=== PATIENT | male | born 1960 | race Caucasian/White ===

== ENCOUNTER 2016-10-25 10:10 | Outpatient (CLI) | payer OTHER ==
--- NOTE | 2016-10-26 10:31 | DIAGNOSTIC IMAGING REPORT ---
PROCEDURE: 2-D M-mode echo Doppler CLINICAL INDICATION: Chest pain TECHNIQUE: Standard 2-D M-mode echo Doppler technique COMPARISON: None available FINDINGS: The aortic valve exhibits very mild sclerosis no stenosis or insufficiency apparent. The mitral valve and tricuspid valves are normal with normal RVSP of 24. The pulmonic valve is normal. Ventricular dimension is normal LVH is present ejection fraction is 67% with normal contractility. Right ventricular size dimension and function is normal. Left and right atrial dimensions are normal.Aortic root is mildly dilated measuring 3.8 cm pericardium is normal IMPRESSION: Aortic sclerosis no stenosis Left ventricular ejection fraction 67% with normal contraction LVH Mild aortic root dilation measuring 3.8 cm
== END 2016-10-25 23:00 ==
LOC: US SRH 10:10
DX: R07.9 Chest pain, unspecified (principal)

== ENCOUNTER 2016-11-02 10:57 | Outpatient (CLI) | payer OTHER ==
--- NOTE | 2016-11-03 16:31 | DIAGNOSTIC IMAGING REPORT ---
PROCEDURE: NM CARDIAC STRESS TEST INDICATION: Chest pain TECHNIQUE: Please see separately dictated stress test report for details of that portion of the procedure. COMPARISON: None FINDINGS: SPECT imaging shows homogeneous tracer distribution. Some stress score is one. Gated SPECT imaging shows ejection fraction 59%, end-diastolic volume 158 ml, end-systolic volume 65 ml. Wall motion and wall thickening are normal. IMPRESSION: No infarct or ischemia Normal left ventricular ejection fraction. Mildly dilated left ventricle.
== END 2016-11-02 23:00 ==
LOC: NM SRH 10:57
PROC: 3E073KZ Introduction of Other Diagnostic Substance into Coronary Artery, Percutaneous Approach (ICD-10-PCS; principal; 2016-11-02)
PROC: 4A02XM4 Measurement of Cardiac Total Activity, External Approach (ICD-10-PCS; principal; 2016-11-02)
DX: R42 Dizziness and giddiness (principal); R07.9 Chest pain, unspecified

== ENCOUNTER 2017-03-02 17:08 | Emergency (ER) | payer OTHER ==
--- NOTE | 2017-03-02 17:45 | ED NURSING NOTES ---
Clinical Report - Nurses [facility] [address] [place] [address] 03/02/2017 17:09 Patient: JENNIE PADILLA TRIAGE Triage time 17:Mar 02 2017. Acuity: LEVEL 3. Chief Complaint: ABDOMINAL PAIN. 17:14 03/02/17. Alert. No acute distress. SEPSIS SCREEN: Sepsis Screen. Negative (no infection suspected/documented). YG COMA SCORE: Yg Coma Scale: 15- eyes open spontaneously (4); best verbal response- oriented x 4 (5); best motor response- obeys commands (6). --17:14 Marcia Jennings 17:23 03/02/17. ( 10/10 at worst). --17:23 Marcia Jennings 17:23 03/02/17. BP: 104/58. HR: 65. RR: 20. O2 saturation: 96%. Temp: 98.2 F. Pain level now 8/10. --17:23 Marcia Jennings. Weight: 95.2 kg stated. Height/Length: 73 inches Per Patient. BMI: 27.7. --17:15 Marcia Jennings. Medications Aspirin Oral. Cyclobenzaprine HCl Oral. HTN meds x 2. --17:15 Marcia Jennings The following entry was struck by Marcia Jennings, 17:15 (03/02/17) Reason - other. <<STRICKEN ENTRY-- Bp meds. --17:13 Marcia Jennings --END STRIKE>>. Medication/allergy information source: the patient. --17:14 Marcia Jennings. Allergies Codeine.(nausea) --17:15 Marcia Jennings. History Arrived by EMS. Historian: EMS and patient. This started today. The patient has had a subjective fever and abdominal pain. No nausea, vomiting, diarrhea or constipation. 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 BP: 140/80. HR: 76. RR: 18. O2 saturation: 95 % room air. ( Sharp L flank pain this AM. Pain increased, stabbing pain. Radiates up Left chest and arm. Spasming pain. NSR for medics. Pt had "a couple drinks THREADING MACHINE FEEDER AUTOMATIC"). FALL RISK ASSESSMENT: Fall risk assessment completed. No fall risk identified. NUTRITIONAL RISK ASSESSMENT: The nutritional risk assessment revealed no deficiencies. FUNCTIONAL ASSESSMENT: Functional assessment: no impairments noted. LEARNING NEEDS ASSESSMENT: The learning needs assessment revealed no barriers. SKIN INTEGRITY ASSESSMENT: Skin integrity risk assessment completed. No skin integrity risk identified. --17:14 Marcia Jennings ( Pain worse when breathing. Pt reports pain that comes and goes. Most of the pain is in the left flank, also reports chest pain.). SOCIAL HX: Heavy tobacco smoker (cigarette)- less than 1 pack per day. Occasional alcohol use. Last drink was just prior to arrival. No drug use. No recent travel. No known contact with a sick individual. --17:23 Marcia Jennings. PROBLEMS: Hypertension. Abdominal Pain. Glaucoma. --17:15 Marcia Jennings. ADDITIONAL SURGERIES: Appendectomy. Eye . Knee Surgery. --17:15 Marcia Jennings. Assessment The patient states feels the same. --17:23 Marcia Jennings. Interventions ID band on patient. --17:14 Marcia Jennings. PHYSICAL ASSESSMENT 17:24 03/02/17. To room via stretcher. Patient gowned. GENERAL / NEURO / PSYCH: Alert. Oriented X 4. Appears in pain. HEENT: Mucous membranes are pink. RESPIRATORY: Respirations not labored. CVS: Capillary refill less than 2 seconds. GI / : No nausea noted. ( flank pain on left side). SKIN: Skin is warm and dry. --17:24 Marcia Jennings. NURSING PROGRESS NOTES 17:24 03/02/17. The plan of care for this patient has been created. business data analyst, pulse oximeter and NIBP monitor placed on patient; monitor alarms on. Patient gowned. Head of bed elevated. Reassurance given. Two patient identifiers checked. Call light placed in reach. Side rails up x 2. Bed placed in lowest position. Brakes of bed on. Patient ready for evaluation- chart flagged and ED physician and THEATRE PROFESSOR notified. --17:24 Marcia Jennings 17:30 03/02/17. ( Pt refuses IV, states he is OK with blood draw.). --17:30 Marcia Jennings. DISPOSITION / DISCHARGE 17:32 03/02/17. The patient left the Emergency Department against medical advice and without completion of treatment; patient was accompanied by a family member. The patient appears to be alert, oriented x4, coherent and in no acute distress. Notified the ED physician of patient departure. Patient left without signing form prior to leaving. The patient left the Emergency Department ambulatory and via private vehicle. ( Patient left ED to get family member. Admitting called ED to inform that patient and family member were leaving.). --17:32 Marcia Jennings 17:32 03/02/17. Departure time: :Mar 02 2017. --17:32 Marcia Jennings 17:30 03/02/17. BP: unable to obtain due to patient not present. HR: unable to obtain due to patient not present. RR: unable to obtain due to patient not present. O2 saturation: unable to obtain due to patient not present. Temp: unable to obtain due to patient not present. Pain level now unable to obtain due to patient not present. --00:48 Marcia Jennings. Locked/Released at 03/03/2017 0:48 by Marcia Jennings,
--- NOTE | 2017-03-02 17:45 | ED NURSING NOTES ---
Clinical Report - Nurses [facility] [address] [place] [address] 03/02/2017 17:09 Patient: JENNIE PADILLA TRIAGE Triage time 17:Mar 02 2017. Acuity: LEVEL 3. Chief Complaint: ABDOMINAL PAIN. 17:14 03/02/17. Alert. No acute distress. SEPSIS SCREEN: Sepsis Screen. Negative (no infection suspected/documented). YG COMA SCORE: Yg Coma Scale: 15- eyes open spontaneously (4); best verbal response- oriented x 4 (5); best motor response- obeys commands (6). --17:14 Marcia Jennings 17:23 03/02/17. ( 10/10 at worst). --17:23 Marcia Jennings 17:23 03/02/17. BP: 104/58. HR: 65. RR: 20. O2 saturation: 96%. Temp: 98.2 F. Pain level now 8/10. --17:23 Marcia Jennings. Weight: 95.2 kg stated. Height/Length: 73 inches Per Patient. BMI: 27.7. --17:15 Marcia Jennings. Medications Aspirin Oral. Cyclobenzaprine HCl Oral. HTN meds x 2. --17:15 Marcia Jennings The following entry was struck by Marcia Jennings, 17:15 (03/02/17) Reason - other. <<STRICKEN ENTRY-- Bp meds. --17:13 Marcia Jennings --END STRIKE>>. Medication/allergy information source: the patient. --17:14 Marcia Jennings. Allergies Codeine.(nausea) --17:15 Marcia Jennings. History Arrived by EMS. Historian: EMS and patient. This started today. The patient has had a subjective fever and abdominal pain. No nausea, vomiting, diarrhea or constipation. 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 BP: 140/80. HR: 76. RR: 18. O2 saturation: 95 % room air. ( Sharp L flank pain this AM. Pain increased, stabbing pain. Radiates up Left chest and arm. Spasming pain. NSR for medics. Pt had "a couple drinks MAILROOM CLERK"). FALL RISK ASSESSMENT: Fall risk assessment completed. No fall risk identified. NUTRITIONAL RISK ASSESSMENT: The nutritional risk assessment revealed no deficiencies. FUNCTIONAL ASSESSMENT: Functional assessment: no impairments noted. LEARNING NEEDS ASSESSMENT: The learning needs assessment revealed no barriers. SKIN INTEGRITY ASSESSMENT: Skin integrity risk assessment completed. No skin integrity risk identified. --17:14 Marcia Jennings ( Pain worse when breathing. Pt reports pain that comes and goes. Most of the pain is in the left flank, also reports chest pain.). SOCIAL HX: Heavy tobacco smoker (cigarette)- less than 1 pack per day. Occasional alcohol use. Last drink was just prior to arrival. No drug use. No recent travel. No known contact with a sick individual. --17:23 Marcia Jennings. PROBLEMS: Hypertension. Abdominal Pain. Glaucoma. --17:15 Marcia Jennings. ADDITIONAL SURGERIES: Appendectomy. Eye . Knee Surgery. --17:15 Marcia Jennings. Assessment The patient states feels the same. --17:23 Marcia Jennings. Interventions ID band on patient. --17:14 Marcia Jennings. PHYSICAL ASSESSMENT 17:24 03/02/17. To room via stretcher. Patient gowned. GENERAL / NEURO / PSYCH: Alert. Oriented X 4. Appears in pain. HEENT: Mucous membranes are pink. RESPIRATORY: Respirations not labored. CVS: Capillary refill less than 2 seconds. GI / : No nausea noted. ( flank pain on left side). SKIN: Skin is warm and dry. --17:24 Marcia Jennings. NURSING PROGRESS NOTES 17:24 03/02/17. The plan of care for this patient has been created. playground monitor, pulse oximeter and NIBP monitor placed on patient; monitor alarms on. Patient gowned. Head of bed elevated. Reassurance given. Two patient identifiers checked. Call light placed in reach. Side rails up x 2. Bed placed in lowest position. Brakes of bed on. Patient ready for evaluation- chart flagged and ED physician and ORDER FULFILLMENT SPECIALIST notified. --17:24 Marcia Jennings 17:30 03/02/17. ( Pt refuses IV, states he is OK with blood draw.). --17:30 Marcia Jennings. DISPOSITION / DISCHARGE 17:32 03/02/17. The patient left the Emergency Department against medical advice and without completion of treatment; patient was accompanied by a family member. The patient appears to be alert, oriented x4, coherent and in no acute distress. Notified the ED physician of patient departure. Patient left without signing form prior to leaving. The patient left the Emergency Department ambulatory and via private vehicle. ( Patient left ED to get family member. Admitting called ED to inform that patient and family member were leaving.). --17:32 Marcia Jennings 17:32 03/02/17. Departure time: :Mar 02 2017. --17:32 Marcia Jennings 17:30 03/02/17. BP: unable to obtain due to patient not present. HR: unable to obtain due to patient not present. RR: unable to obtain due to patient not present. O2 saturation: unable to obtain due to patient not present. Temp: unable to obtain due to patient not present. Pain level now unable to obtain due to patient not present. --00:48 Marcia Jennings. Locked/Released at 03/03/2017 0:48 by Marcia Jennings,
--- NOTE | 2017-03-02 17:45 | ED ORDER SUMMARY ---
..... Patient: JENNIE PADILLA OrderSheet [facility] VisitID: [id number] [place] [address] 57y, M Registration Date/Time: 03/02/2017 ORDER SHEET Weight: 95.2 kg (stated) Allergies: Codeine GENERAL ORDERS: CBC w Diff Urgent (17:03/02/2017 HBivens A.R.N.P.) (Ack 17:33 PWeiler ER Tech1) (Cancelled: Patient Left22:45 AMcQuoid ER Tech1) CMP Urgent (17:03/02/2017 HBivens A.R.N.P.) (Ack 17:33 PWeiler ER Tech1) (Cancelled: Patient Left22:45 AMcQuoid ER Tech1) UA-Culture if indicated Urgent (17:03/02/2017 HBivens A.R.N.P.) (Ack 17:33 PWeiler ER Tech1) (Cancelled: Patient Left22:45 AMcQuoid ER Tech1) Amylase Urgent (17:03/02/2017 HBivens A.R.N.P.) (Ack 17:33 PWeiler ER Tech1) (Cancelled: Patient Left22:45 AMcQuoid ER Tech1) Lipase Urgent (17:03/02/2017 HBivens A.R.N.P.) (Ack 17:33 PWeiler ER Tech1) (Cancelled: Patient Left22:45 AMcQuoid ER Tech1) Ethyl Alcohol Urgent (17:03/02/2017 HBivens A.R.N.P.) (Ack 17:33 PWeiler ER Tech1) (Cancelled: Patient Left22:45 AMcQuoid ER Tech1) MEDICATION ORDERS: IV FLUIDS: IV NS : initial bolus 1000 mL (1000 mL/hr), then none - (NOW) (:03/02/2017 HBivens A.R.N.P.) Toradol IV 30 mg (NOW) (17:03/02/2017 HBivens A.R.N.P.) IV Saline Lock (:03/02/2017 HBivens A.R.N.P.) ORDER SHEET NOTES: [Electronically signed by Keren Chiang (20:45 03/02/2017)] [Electronically signed by Marcia Jennings (00:48 03/03/2017)] [Electronically locked/signed by Marcia Jennings (00:48 03/03/2017)]
--- NOTE | 2017-03-02 17:45 | ED CLINICAL REPORT ---
Clinical Report - Physicians/Mid Levels [facility] [address] [place] [address] 03/02/2017 17:09 Patient: JENNIE PADILLA Time Seen: 17:20; initial patient contact, initial documentation, patient care assumed. Arrived- By ambulance. Historian- patient. HISTORY OF PRESENT ILLNESS Chief Complaint: ABDOMINAL PAIN. At its maximum, severity described as severe. When seen in the E.D., severity described as severe. Modifying factors. Not worsened by anything. Not relieved by anything. It is described as "pain" and it is described as located in the left upper quadrant and radiating to the epigastrum. This started today and is still present. It was abrupt in onset and has been intermittent. No nausea, loss of appetite, vomiting or diarrhea. No recent travel. Similar symptoms previously: None. Recent medical care: Not recently seen/assessed. REVIEW OF SYSTEMS No constipation, black stools, hematemesis, difficulty with urination or pain with urination. No urinary frequency, bloody stools, fever, chest pain or difficulty breathing. All systems otherwise negative, except as recorded above. PAST HISTORY See nurses notes. PROBLEMS: Hypertension. Abdominal Pain. Glaucoma. --17:15 Marcia Jennings. ADDITIONAL SURGERIES: Appendectomy. Eye . Knee Surgery. --17:15 Marcia Jennings. The patient states feels the same. SOCIAL HISTORY Heavy tobacco smoker. Regular alcohol use. Last drink was just prior to arrival. Under the influence in E.D. No drug use. No recent travel. Is a local resident. FAMILY HISTORY Negative. ADDITIONAL NOTES The nursing notes have been reviewed with agreement regarding the chief complaint, HPI, ROS, PMH and patient medications and allergies. PHYSICAL EXAM Vital Signs: 03/02/2017 17:23 BP: 104/58. HR: 65. RR: 20. O2 saturation: 96%. Temp: 98.2 F. Have been reviewed as normal and appear to be correct. Appearance: Alert. Oriented X3. No acute distress. (strong etoh breath). Eyes: Pupils equal, round and reactive to light. Eyes normal inspection. Neck: Normal inspection. Neck supple. CVS: Normal heart rate and rhythm. Heart sounds normal. Pulses normal. Respiratory: No respiratory distress. Breath sounds normal. Chest nontender. Abdomen: Soft. Mild tenderness in the epigastric area. Abnormal bowel sounds. No organomegaly. No mass. Tenderness present. Back: Normal inspection. Skin: Skin warm and dry. Normal skin color. No rash. Normal skin turgor. Extremities: Extremities exhibit normal ROM. No lower extremity edema. Neuro: Oriented X 3. No motor deficit. No sensory deficit. PROGRESS AND PROCEDURES Course of Care: nurse reporting pt refused his iv 17:31 03/02/17. now being informed that pt left. Differential Diagnosis: I considered gastritis, gastroenteritis, peptic ulcer disease, gastroesophageal reflux disease, diverticulitis, colon cancer, ulcerative colitis, Crohn's disease, biliary colic, cholecystitis, cholelithiasis, hepatitis, pancreatitis, common bile duct obstruction, cholangitis, hernia, ureterolithiasis and viral syndrome as a possible cause of abdominal pain in this patient. This is a partial list of diagnoses considered. Above considerations are based on history and physical exam. CLINICAL IMPRESSION Acute left upper quadrant abdominal pain of undetermined cause. Uncomplicated alcohol intoxication. No alcohol intoxication with delirium or alcohol dependence. (Electronically signed by Keren Chiang A.R.N.P. 03/02/2017 20:45)
--- NOTE | 2017-03-02 17:45 | ED ORDER SUMMARY ---
..... Patient: JENNIE PADILLA OrderSheet [facility] VisitID: [id number] [place] [address] 57y, M Registration Date/Time: 03/02/2017 ORDER SHEET Weight: 95.2 kg (stated) Allergies: Codeine GENERAL ORDERS: CBC w Diff Urgent (17:03/02/2017 HBivens A.R.N.P.) (Ack 17:33 PWeiler ER Tech1) (Cancelled: Patient Left22:45 AMcQuoid ER Tech1) CMP Urgent (17:03/02/2017 HBivens A.R.N.P.) (Ack 17:33 PWeiler ER Tech1) (Cancelled: Patient Left22:45 AMcQuoid ER Tech1) UA-Culture if indicated Urgent (17:03/02/2017 HBivens A.R.N.P.) (Ack 17:33 PWeiler ER Tech1) (Cancelled: Patient Left22:45 AMcQuoid ER Tech1) Amylase Urgent (17:03/02/2017 HBivens A.R.N.P.) (Ack 17:33 PWeiler ER Tech1) (Cancelled: Patient Left22:45 AMcQuoid ER Tech1) Lipase Urgent (17:03/02/2017 HBivens A.R.N.P.) (Ack 17:33 PWeiler ER Tech1) (Cancelled: Patient Left22:45 AMcQuoid ER Tech1) Ethyl Alcohol Urgent (17:03/02/2017 HBivens A.R.N.P.) (Ack 17:33 PWeiler ER Tech1) (Cancelled: Patient Left22:45 AMcQuoid ER Tech1) MEDICATION ORDERS: IV FLUIDS: IV NS : initial bolus 1000 mL (1000 mL/hr), then none - (NOW) (:03/02/2017 HBivens A.R.N.P.) Toradol IV 30 mg (NOW) (17:03/02/2017 HBivens A.R.N.P.) IV Saline Lock (:03/02/2017 HBivens A.R.N.P.) ORDER SHEET NOTES: [Electronically signed by Keren Chiang (20:45 03/02/2017)] [Electronically signed by Marcia Jennings (00:48 03/03/2017)] [Electronically locked/signed by Marcia Jennings (00:48 03/03/2017)]
--- NOTE | 2017-03-03 00:48 | ED MED RECONCILIATION SUMMARY ---
Patient: JENNIE PADILLA Medication Reconciliation Report [facility] VisitID: [id number] [address] [place] [address] 57y, M Registration Date/Time: 03/02/2017 Weight: 95.2 kg Height/Length: 73 in. BMI: 27.7 ALLERGIES: Codeine The patient's Home Medications are listed below: THE FOLLOWING MEDICATIONS NEED TO BE RECONCILED: Aspirin Oral Cyclobenzaprine HCl Oral HTN meds x 2 The source(s) of the original Home Medication information: patient The following Medications were given to the patient in the Emergency Department: None. The following Medications were prescribed to the patient: None.
--- NOTE | 2017-03-03 00:48 | ED DISCHARGE INSTRUCTIONS ---
Patient: JENNIE PADILLA General Instructions [facility] VisitID: [id number] [address] [place] [place] [address] 57y, M Registration Date/Time: 03/02/2017 Acute left upper quadrant abdominal pain of undetermined cause. Uncomplicated alcohol intoxication. No alcohol intoxication with delirium or alcohol dependence. (Electronically signed by Keren Chiang A.R.N.P. 03/02/2017 20:45)
--- NOTE | 2017-03-03 00:48 | ED DISCHARGE INSTRUCTIONS ---
Patient: JENNIE PADILLA General Instructions [facility] VisitID: [id number] [address] [place] [address] 57y, M Registration Date/Time: 03/02/2017 Acute left upper quadrant abdominal pain of undetermined cause. Uncomplicated alcohol intoxication. No alcohol intoxication with delirium or alcohol dependence. (Electronically signed by Keren Chiang A.R.N.P. 03/02/2017 20:45)
--- NOTE | 2017-03-03 00:48 | ED MAR SUMMARY ---
..... Medication Administration Record [facility] [address] [place], [place] [id number] Patient: JENNIE PADILLA Visit ID: [id number] 57y, M Weight: 95.2 kg Height/Length: 73 in BMI: 27.7 ALLERGIES: Codeine
--- NOTE | 2017-03-03 00:48 | ED MED RECONCILIATION SUMMARY ---
Patient: JENNIE PADILLA Medication Reconciliation Report [facility] VisitID: [id number] [address] [place] [address] 57y, M Registration Date/Time: 03/02/2017 Weight: 95.2 kg Height/Length: 73 in. BMI: 27.7 ALLERGIES: Codeine The patient's Home Medications are listed below: THE FOLLOWING MEDICATIONS NEED TO BE RECONCILED: Aspirin Oral Cyclobenzaprine HCl Oral HTN meds x 2 The source(s) of the original Home Medication information: patient The following Medications were given to the patient in the Emergency Department: None. The following Medications were prescribed to the patient: None.
--- NOTE | 2017-03-03 00:48 | ED MAR SUMMARY ---
..... Medication Administration Record [facility] [address] [place], [place] [id number] Patient: JENNIE PADILLA Visit ID: [id number] 57y, M Weight: 95.2 kg Height/Length: 73 in BMI: 27.7 ALLERGIES: Codeine
== END 2017-03-02 17:32 | disposition left against medical advice (07) ==
LOC: ED SRH 17:08
DX: R10.12 Left upper quadrant pain (principal); F10.220 Alcohol dependence with intoxication, uncomplicated; F17.210 Nicotine dependence, cigarettes, uncomplicated; I10 Essential (primary) hypertension; Z79.82 Long term (current) use of aspirin; Z88.5 Allergy status to narcotic agent
CPT/HCPCS: 90004